=== PATIENT | male | born 1950 | race Caucasian/White ===

== ENCOUNTER 2024-04-18 10:41 | Emergency (ER) | payer MEDICARE, SELFPAY ==
[2024-04-18 11:05] VITALS: BP 108/73; PULSE 70; RESP 20; TEMP 36.7; O2SAT 97; BMI 26.4
--- NOTE | 2024-04-18 11:10 | EXP.UTC ---
Discharge Plan Disposition Patient Disposition: Home, Self-Care Condition: Good Prescriptions Prescriptions: New dextromethorphan polistirex [Delsym 12 hour] 30 mg/5 mL suspension,extended rel 12 hr 10 ml PO Q12H PRN (Reason: cough) Qty: 89 0RF No Action atorvastatin 40 mg tablet 40 mg PO DAILY Patient Comments: TAKE ONE (1) TABLET DAILY. acyclovir 400 mg tablet 400 mg PO DAILY Patient Comments: TAKE ONE (1) TABLET EVERY DAY BY ORAL ROUTE FOR 90 DAYS. montelukast 10 mg tablet 10 mg PO DAILY Patient Comments: TAKE ONE (1) TABLET(S) EVERY DAY nebivolol 10 mg tablet 10 mg PO DAILY Patient Comments: TAKE ONE (1) TABLET EVERY DAY BY ORAL ROUTE FOR 90 DAYS. Referrals Follow up/Referrals: Provider,Referral, MD [Primary Care Provider] - See instructions Activity Restrictions/Add. Instructions Additional Instructions/Restrictions: *Monitor Temp, Over the counter Motrin or Tylenol as directed/as needed Tylenol every 4 hours and Motrin every 6 hours (as long as your family doctor has told you that you can take it) for fever or pain. and straight to ER if unable to lower temp less than 101.0 after medication given *Warm salt water gargles may help to soothe the throat *Throat Lozenges? *Warm fluids like tea with honey may help to soothe the throat? *Sleep elevated *Humidifier/Vaporizer Follow up IMMEDIATELY for new or worsening symptoms or no Noticeable improvement over the next 48-72 hours. 911 for difficulty breathing or swallowing You were tested for today for COVID19 your test result should be back in the next 24hours, you may check your results on the [facility] [employer] [facility] Portal Clinical Impressions Clinical Impression: Upper respiratory infection Qualifiers: URI type: supraglottitis Airway obstruction: without obstruction Qualified Code(s): J04.30 - Supraglottitis, unspecified, without obstruction Instructions Patient Instructions: Cough, DI for Headache Print Language Print Language: Danish Discharge ED Provider: [place]ci [place] [facility] [place] General Stated complaint: congestion, cough, fever x3 days Time Seen by Provider: 04/18/24 11:10 History of Present Illness Provider Complaint: Patient states that he hasnt felt well for about a week States he seen PCP last week and was given zpack and steriods but hasnt helped and over the last three days his symptoms have continued and now feeling like he is having fever on and off and dry hacky cough with sinus congestion and pressure worried he may have COVID he came in wanting to get checked Related Data Home Medications ?Medication ?Instructions ?Recorded ?Confirmed acyclovir 400 mg tablet 400 mg PO DAILY 04/18/24 04/18/24 atorvastatin 40 mg tablet 40 mg PO DAILY 04/18/24 04/18/24 montelukast 10 mg tablet 10 mg PO DAILY 04/18/24 04/18/24 nebivolol 10 mg tablet 10 mg PO DAILY 04/18/24 04/18/24 Previous Rx's ?Medication ?Instructions ?Recorded dextromethorphan polistirex 30 10 ml PO Q12H PRN cough #89 mL 04/18/24 mg/5 mL oral susp ext.release 12hr (Delsym 12 hour) Allergies Allergy/AdvReac Type Severity Reaction Status Date / Time Sulfa (Sulfonamide Allergy Verified 04/18/24 11:15 Antibiotics) [facility] Disclaimer: The information contained in this section may have been updated after the patient was seen, as this information can be updated by other users. Medical History (Updated 04/18/24 @ 11:17 by Monique Guan RN) Hyperlipidemia Hypertension Surgical History (Updated 04/18/24 @ 11:17 by Monique Guan RN) History of tympanostomy tube placement History of appendectomy Social History Smoking Status: Unknown if ever smoked alcohol intake: never current occupational status: retired Travel in the last 8 weeks: None ROS Obtained: Yes All systems reviewed & no additional complaints except as documented and Yes Systems reviewed as appropriate & no additional complaints except as documented Constitutional Constitutional: Reports system reviewed and no additional complaints, except as documented, Reports as per HPI and Reports headache(s) ENT Ears, Nose, Mouth, and Throat: Reports system reviewed and no additional complaints, except as documented, Reports as per HPI, Reports headache(s), Reports sinus pain and Reports sinus pressure Cardiovascular Cardiovascular: Reports system reviewed and no additional complaints, except as documented and Reports as per HPI Respiratory Respiratory: Reports system reviewed and no additional complaints, except as documented, Reports as per HPI, Denies shortness of breath, Denies chest congestion, Reports cough and Denies wheezing Neurologic Neurologic: Reports headache(s) Allergic/Immunologic Allergic/Immunologic: Denies wheezing Physical Exam General General appearance: alert and in no apparent distress ENT ENT exam: Present mucous membranes moist Expanded ENT Exam Nose exam: Present sinus tenderness Chest Chest inspection: Present normal inspection and symmetric chest wall rise Respiratory Respiratory exam: Present normal lung sounds bilaterally; Absent respiratory distress or wheezes Cardiovascular Cardiovascular exam: Present regular rate, normal rhythm and normal heart sounds Neurological Exam Neurological exam: Present alert, oriented X3 and normal gait Medical Decision Making Dickson Inquiry Pt receiving controlled substance: No Dickson was queried for this patient: No
[2024-04-18 11:17] VITALS: BP 108/73; PULSE 70; RESP 20; TEMP 36.7; O2SAT 97
[2024-04-18 11:25] LABS: Influenza A, PCR Not Detected (NotDetected); Influenza B, PCR Not Detected (NotDetected)
[2024-04-18 11:52] LABS: Coronavirus 19, PCR Detected (NotDetected)
--- NOTE | 2024-04-18 12:28 | PC.NURSE ---
PATIENT NOTIFIED OF POSITIVE COVID TEST AT THIS TIME. PATIENT ADVISED TO FOLLOW-UP WITH PCP. PATIENT VERBALIZED UNDERSTANDING
== END 2024-04-18 11:22 | disposition home or self-care (01) ==
PROVIDERS: Emergency Provider Nurse Practitioner
DX: U07.1 COVID-19 (principal); J04.30 Supraglottitis, unspecified, without obstruction; R50.9 Fever, unspecified; R05.9 Cough, unspecified; R09.81 Nasal congestion; I10 Essential (primary) hypertension; E78.5 Hyperlipidemia, unspecified
CPT/HCPCS: 87636; 99204; 99212; G0463